=== PATIENT | female | born 1970 | race Caucasian/White ===

== ENCOUNTER → 2017-06-12 | Day surgery (SDC) | payer OTHER ==
[~2017-06-12] VITALS: Ht 154.9 cm; Wt 49.4 kg
--- NOTE | 2017-06-13 08:36 | ULTRASOUND REPORT ---
EXAMINATION: Intraoperative ultrasound CLINICAL INFORMATION: 46-year-old female with metromenorrhagia. COMPARISON: None. TECHNIQUE: Intraoperative ultrasound was provided for use by Dr. Deng for cryoablation. A radiologist was not present during imaging. A total of 10 images were saved to PACS. FINDINGS\E\IMPRESSION: Intraoperative ultrasound provided for use by Dr. Deng. Please see operative note for detailed findings.
--- NOTE | 2017-06-16 17:05 | Operative Report ---
Operative/Inv Procedure Report Surgery Date: 06/12/17 Name of Procedure: D&C cryoablation under ultrasound guidance Pre-Operative Diagnosis: Metromenorrhagia Post-Operative Diagnosis: Same Estimated Blood Loss: less than 50ml Surgeon/Limnologist: Ish WRIGHT,Liberty Mallory Anesthesia: moderate sedation Operative/Procedure Note Note: Procedure note patient was taken the operating room placed on position after adequate anesthesia patient was in dorsolithotomy position the vagina from dorsal fashion bladder was catheterized examination anesthesia performed at this point the bladder was catheterized I the arm to 2 times placed on the Intralipid cervix gentle downward traction cervix was dilated to allow for sharp curet sharp curettage endometrial lining was performed sharp curettage and cervical was 12 specimen sent to pathology patient tolerated that well at this point with the bladder filled with approximately 2 and 50 mL normal saline and ultrasound guidance from the department of radiology [facility] the probe was placed into the uterus I and personally 8 minutes of cryoablation was performed patient tolerated this well the probe was heated and removed the patient was returned spine position on since removed from the vagina patient was awakened from anesthesia and transferred recovery room awake and alert with counts correct Findings: Normal size uterus no adnexal masses normal I uterine tissue
== END ==
LOC: STS 02:14
DX: N92.1 Excessive and frequent menstruation with irregular cycle (principal); F17.200 Nicotine dependence, unspecified, uncomplicated
CPT/HCPCS: 76998; 81025; J1100; J2250; J2405

== ENCOUNTER 2018-01-22 01:49 | Inpatient (IN) | payer OTHER ==
[~2018-01-22] VITALS: Ht 154.9 cm; Wt 47.6 kg
[~2018-01-22 01:49] MED LIST: GEODON60 MG PO; WELLBUTRIN XL150 M2 PO; WELLBUTRIN XL300 M2 PO; XANAX0.5 M1 PO
--- NOTE | 2018-01-22 08:39 | Operative Report ---
Operative/Inv Procedure Report Surgery Date: 01/22/18 Name of Procedure: cystoscopy: bilateral stent insertion Pre-Operative Diagnosis: Metromenorrhagia Post-Operative Diagnosis: same Estimated Blood Loss: scant Surgeon/Registered Nurse Behavioral Health: MD Rafael, Damion-urology Anesthesia: general endotracheal tube Drains: 18 fr prieto Specimens: ucx Complications: none Operative/Procedure Note Note: The patient was taken to the operating room and placed on the OR table in supine position. Timeout was performed, with the patient awake, to confirm identify, planned procedures, anesthesia, antibiotics and other pertinent [place]-operative information. After adequate anesthesia, and IV antibiotics, the patient was placed in lithotomy Yellow-fin stirrups. She was then draped and prepped in the usual surgical fashion, including a vaginal prep. A 22 Niuean cystoscope sheath with a 30 angle lens was inserted into the bladder without significant difficulty. The bladder was thoroughly and systematically examined, and was noted to be free of tumor, free of stone, free of fistula. Both ureteral orifices were in their orthotopic positions with clear reflux bilaterally. Under direct visualization the left orifice was intubated with a 5 Niuean whistle-tip catheter, which was advanced easily into the left kidney pelvis. The right ureteral orifice was intubated with a second 5 Niuean ureteral whistle tip catheter, and advanced into the right renal pelvis without difficulty. For identification purposes the blue marked stent went into the left kidney and the right ureteral stent was marked red. Urine culture was obtained and sent to pathology. The cystoscope was then removed leaving both stents in proper place. An 18 Niuean Prieto catheter was inserted draining clear fluid and 10 mL of sterile water was then placed in the balloon. The ends ureteral stents, which protruded externally, were taped to the Prieto catheter in order to secure their position. The individual ureteral stents were then connected to their individual drainage devices. All sponge needle and instrument count were correct at the end of this case. The patient tolerated the procedure well. The patient was then placed in supine position with Venodyne's in place. At this point, Dr. Deng was able to proceed with the patient's surgery. Discharge Disposition: proceed with Dr. Deng CC: Damion Hall MD
--- NOTE | 2018-01-22 10:18 | Operative Report ---
Operative/Inv Procedure Report Surgery Date: 01/22/18 Name of Procedure: Abdominal hysterectomy bilateral salpingectomy via Pfannenstiel skin incision Pre-Operative Diagnosis: Menorrhagia Post-Operative Diagnosis: Same Estimated Blood Loss: 500 Surgeon/Director [place]: Ish WRIGHT,Liberty Mallory and Dr. Mil Naqvi Anesthesia: general endotracheal tube, block Operative/Procedure Note Note: Cc general patient was taken the operating room placed supine position after adequate anesthesia patient placed in dorsolithotomy position the vagina from dorsal fashion stents were placed by Dr. Damion Hall who will dictate that part of the case on at this point patient was returned spine position the abdomen had been prepped and draped so fashion 2 fingerbreadths of symptoms pubis in midline skin was cut was carried down to rectus fascia which was cut in curvilinear fashion I direction peritoneal cavity was entered bluntly [place] was placed in usual fashion patient tolerated that well at this point the round ligament left was identified suture-ligated 0 on the right was identified suture-ligated 0 the bladder flap was developed using a Bovie patient tolerated that well on at this point sequentially cervical branches uterine artery clamped and cut to level of the external os the specimen was removed using a Bovie the cuff was oversewn running locking suture of 0 was indicated interrupted [id number] for hemostasis patient tolerated that well at this point on the right tube was picked up clamped 2 with Espinosa ducts cut removed and suture ligated using 0 left tube was picked up clamped 2 cut removed and suture ligated 2 using 0 hemostasis was apparent at the end the case underneath the bladder flap in December was applied advancements removed from the abdomen as well as the counts were correct at the end of the case the peritoneum was reapproximated 0 the fascia was reapproximated to continue sutures #1 skin was reapproximated bree after Bovie coagulation subcutaneous tissue at the end the case the vagina was irrigated found to be hemostatic patient was awakened from anesthesia and transferred recovery room awake alert with counts correct Findings: Slightly enlarged uterus normal ovaries bilaterally otherwise normal anatomy
[2018-01-22 12:03] VITALS: BP 138/80
[2018-01-22 14:25] VITALS: BP 128/76
[2018-01-22 19:57] VITALS: BP 120/70
[2018-01-23] VITALS: BP 109/64
[2018-01-23 06:25] VITALS: BP 93/53
[2018-01-23 06:43] VITALS: BP 100/60
[2018-01-23 07:58] LABS: ABSOLUTE BASOPHIL COUNT 0 /CUMM (0.0-0.2); ABSOLUTE EOSINOPHIL COUNT 0 /CUMM (0.0-0.7); ABSOLUTE LYMPH COUNT 1.6 /CUMM (1.2-3.4); ABSOLUTE MONOCYTE COUNT 0.9 /CUMM (0.10-0.60); BASOPHIL % 0.2 % (0.0-2.0); EOSINOPHIL % 0.2 % (0-5); GRANULOCYTE % 81.5 % (42.2-75.2); MEAN CORPUSCULAR HGB 31.1 PG (27.0-31.0); MEAN CORPUSCULAR HGB CONC 34.5 G/DL (33.0-37.0); MEAN CORPUSCULAR VOLUME 89.9 FL (81.0-99.0); MEAN PLATELET VOLUME 8.3 FL (7.4-10.4); PLATELET COUNT 234 /CUMM (130-400); RBC DISTRIBUTION WIDTH 12.6 % (11.5-14.5)
[2018-01-23 08:10] LABS: HEMATOCRIT 33.9 % (37-47); RED BLOOD CELL CT 3.77 /CUMM (4.20-5.40); WHITE BLOOD CELL COUNT 13.4 /CUMM (4.8-10.8)
--- NOTE | 2018-01-23 09:04 | PN- Post Delivery/GYN ---
See Addendum Subjective Subjective: NO COMPLAINTS ABDBS NT FUNDUS FIRM NT EXT -EDEMA -HOMANS Objective Last 24 Hrs of Vital Signs/I&O Vital Signs Date Time Temp Pulse Resp B/P B/P Pulse O2 O2 Flow FiO2 Mean Ox Delivery Rate 01/23 0643 75 100/60 01/23 0625 98.3 82 20 93/53 99 Room Air 01/23 0000 98.3 59 20 109/64 100 Room Air 01/22 1957 98.3 67 18 120/70 100 01/22 1425 97.7 76 18 128/76 99 Room Air 01/22 1203 98.4 76 18 138/80 100 Nasal 2.0L Cannula Intake & Output 01/23 1600 01/23 0800 01/23 0000 Intake Total 1000 685 Output Total 1400 860 Balance -400 -175 Intake, IV 1000 385 Intake, Oral 300 Output, Urine 1400 860 Physical Exam: PER CHART Assessment/Plan Assessment/Plan ASSESS S/P PLAN CONT PPC
[2018-01-23] MEDS ORDERED: IBUPROFEN800 M1 PO (09:10)
[2018-01-23] MEDS ORDERED: PERCOCET 5-3251 EACH PO (09:10)
[2018-01-23 14:22] VITALS: BP 108/64
[2018-01-23 21:21] VITALS: BP 92/60
[2018-01-24 06:57] VITALS: BP 87/56
--- NOTE | 2018-01-24 12:05 | Surgical Discharge Summary ---
Visit Information Visit Dates Admission Date: 01/22/18 Discharge Date: 01/24/18 History of Present Illness Chief Complaint: Abnormal uterine bleeding Medical History Blood Transfusion Hx: No Neurological: NONE EENT: NONE Cardiovascular: NONE Respiratory: NONE Gastrointestinal: NONE Hepatic: NONE Renal: NONE Musculoskeletal: NONE Psychiatric: anxiety, depression Endocrine: hyperthyroidism, (RESOLVED WITH SURGERY) Blood Disorders: NONE Cancer(s): NONE COMMERCIAL LEASING AGENT/Reproductive: NONE History of MRSA: No Active MRSA Infection: No History of VRE: No History of CDIFF: No Active CDIFF Infection: No Isolation History: Standard Pneumonia Vaccine Status: Never received in past (Discussed benefits with her) Influenza Vaccine Status Never received in past Surgical History Pertinent Surgical History: EAR SURGERIES PARATHYROID CARPAL TUNNEL DNC CYST REMOVAL Psychosocial History Where Do You Live? Home Who Do You Live With? Family Services at Home: None What is Your Primary Language? French Tobacco History: Daily use ETOH Use: denies use Illicit Drug Use History: NA Review of Systems: No nausea No vomiting Positive flatus Dysuria noted Physical Exam: Aox3 NAD Lungs clear Abdomen soft and bowel sounds noted Wound intact with bree No erythema to wound area No edema and negative [facility] Course Course Attending Physician: Liberty Deng MD Primary Care Physician: Aleah WRIGHT,[facility] Course: S/p BRIANA and bilateral salpingectomy with perioperative ureteral stents placed and removed Complications: none Allergies: Coded Allergies: No Known Allergies (01/19/18) Significant Procedures: As outlined Pertinent Lab Results: Hct 33.9 Platelets wnl Urine culture negative Disposition Summary Disposition Principal Diagnosis: Abnormal uterine bleeding Additional Diagnosis: Depression/Anxiety/Tobacco dependance Discharge Disposition: home or self care Discharge Instructions General Discharge Information Code Status: Full Code Patient's Diet: Regular Patient's Activity: No heavy lifting Follow-Up Instructions/Appts: FridayJanuary [address] Deng for wound care Medications at Discharge Discharge Medications: Continue taking these medications: Alprazolam (Xanax) 0.5 MG TABLET 1 Tablet ORAL TWICE DAILY Bupropion HCl (Wellbutrin XL) 150 MG TAB.ER.24H 1 Tablet ORAL DAILY Ziprasidone Hydrochloride (Geodon) 60 MG CAPSULE 1 Capsule ORAL Every Day Start taking the following new medications: Ibuprofen (Ibuprofen) 800 MG TABLET 800 Milligram ORAL EVERY SIX HOURS NEEDED as needed for PAIN Qty = 60 No Refills Oxycodone HCl/Acetaminophen (Percocet 5-325 MG Tablet) 5 MG-325 MG TABLET 1 Tablet ORAL EVERY 4 HOURS NEEDED as needed for PAIN Qty = 30 No Refills Copies To: Ish WRIGHT,Liberty Mallory Attending MD Review Statement Attending Statement Attending MD Statement: examined this patient, discussed w/nursing Attending Assessment/Plan: Discussed Vitamin C benefits for wound healing Discussed her using NRT for tobacco cessation to improve wound healing and reduce pneumonia risks. Pain mgmt strategies reviewed She was given Azo for dysuria however negative urine culture. Most likely from prieto in situ which is now out. VTE risk reduction with ambulation.
== END 2018-01-24 13:24 | DRG 743 ==
LOC: SDA 01:49 → ENRESERV 10:27 → ENTRNSPT 11:26 → EDTRNSPTSTS 11:33 → EDTRNSPT 11:33 → CMPTRNSPT 11:46 → 2NB 11:48 → ENPENDDIS 01-23 09:19 → EDPENDDISDT 01-24 09:19 → ENTRNSPT 01-24 13:09 → EDTRNSPT 01-24 13:21 → EDTRNSPTSTS 01-24 13:21 → 2NB 01-24 13:24 → CMPTRNSPT 01-24 13:26
PROVIDERS: Specialist
PROC: 0UT90ZZ Resection of Uterus, Open Approach (ICD-10-PCS; principal; 2018-01-22)
PROC: 0UT70ZZ Resection of Bilateral Fallopian Tubes, Open Approach (ICD-10-PCS; principal; 2018-01-22)
PROC: 0T788DZ Dilation of Bilateral Ureters with Intraluminal Device, Via Natural or Artificial Opening Endoscopic (ICD-10-PCS; 2018-01-22)
PROC: 3E0T3BZ Introduction of Anesthetic Agent into Peripheral Nerves and Plexi, Percutaneous Approach (ICD-10-PCS; 2018-01-22)
DX: N92.1 Excessive and frequent menstruation with irregular cycle (principal); F17.210 Nicotine dependence, cigarettes, uncomplicated; F32.9 Major depressive disorder, single episode, unspecified
CPT/HCPCS: 36415; 81025; 87086; J0694; J1170; J1200; J1650; J1885; J3490